=== PATIENT | male | born 1990 | race Caucasian/White ===

== ENCOUNTER 2017-05-24 10:27 | Emergency (ER) | payer BC ==
[~2017-05-24] VITALS: Ht 172.7 cm; Wt 114.8 kg
[2017-05-24 11:13] LABS: HEMOGLOBIN 16.7 G/DL (12.5-16.6); MCH 30.6 PG (29.0-34.0); MCHC 35.5 G/DL (30.0-36.0); MCV 86.2 FL (86-99); PLATELET COUNT 250 K/uL (156-360); RBC DIS.WIDTH-CV 12.6 % (11.8-14.6); RBC DIS.WIDTH-SD 39.3 % (39-53); RED BLOOD COUNT 5.45 M/uL (4.00-5.50); WHITE BLOOD COUNT 7.2 K/uL (4.1-10.2)
[2017-05-24 11:36] LABS: CHLORIDE 105 MEQ/L (99-109); SODIUM 139 MEQ/L (136-147)
[2017-05-24 11:41] LABS: GFR ESTIMATE (CALCULATED) > 59 mL/min/ (58.99-99999); GLUCOSE 89 mg/dL (70-99); UREA NITROGEN (BUN) 9 mg/dL (9-23)
[2017-05-24 11:49] LABS: BACTERIA NONE SEEN /HPF; EPITHELIAL CELLS NONE SEEN /HPF; MUCUS TRACE /LPF; RED BLOOD CELLS 0-5 /HPF (0-5); WHITE BLOOD CELLS 0-5 /HPF (0-5)
[2017-05-24 12:02] LABS: ALBUMIN 4.8 G/DL (3.2-4.8); TOTAL BILIRUBIN 0.4 MG/DL (0.0-1.0)
[2017-05-24 12:07] LABS: ALKALINE PHOSPHATASE 66 IU/L (3-129); ALT (GPT) 35 IU/L (3-49); AST (GOT) 21 IU/L (2-34); TOTAL PROTEIN 7.7 G/DL (6.4-8.3)
[2017-05-24] MEDS ORDERED: PERCOCET 5/31 TABLET PO (13:02)
[2017-05-24 14:14] VITALS: BP 150/79
== END 2017-05-24 14:14 | disposition home or self-care (01) ==
LOC: EME 10:27
DX: N13.2 Hydronephrosis with renal and ureteral calculous obstruction (principal); K20.0 Eosinophilic esophagitis; Z87.442 Personal history of urinary calculi
CPT/HCPCS: 80048; 80053; 81003; 81015; 85027; 99281; 99285; J1885; J2270; J2405; J7030